=== PATIENT | male | born 1945 | race Caucasian/White ===

== ENCOUNTER → 2024-01-08 10:26 | Outpatient (REF) | payer OTHER, SELFPAY | LOC: RAD 10:26 | PROVIDERS: ATTENDING PHYSICIAN Physician Assistant | DX: M54.50 Low back pain, unspecified (principal) | CPT/HCPCS: 72110 ==

== ENCOUNTER 2024-04-30 05:58 | Day surgery (SDC) | payer OTHER, SELFPAY ==
[2024-04-30] VITALS (13 sets, daily range): BP systolic 106–130; BP diastolic 54–82; BMI 35.1
[2024-04-30 07:05] LABS: Glucose - Point of Care 197 mg/dl (70-99)
--- NOTE | 2024-04-30 07:10 | PTCARENOTE ---
Pt states he has full upper implants which are removable but are in very tight. Dr Alfredo made aware and assessed pt. Dr Alfredo states pt can keep implants in place.
[2024-04-30] MEDS: TYLENOL 1000 MG PO (07:29)
[2024-04-30 09:07] LABS: ACT-LR - POC 281 Seconds (116-155)
[2024-04-30 09:33] LABS: ACT-LR - POC 384 Seconds (116-155)
--- NOTE | 2024-04-30 10:46 | ITS.CL.ABL ---
Corporate Consultant - Ablation
Ablation
Procedure Report:
AFIB ablation:
Mr. Jarvis is a very pleasant 79 yr old gentleman with h/o PerAF s/p AF ablation in 11/04/2020 that included pulmonary veins isolation, Roof line flutter ablation and remained AF free for 4 years with no recurrent Atrial flutter and presented
today to the EP lab for atrial flutter ablation.
Date of Procedure:
04/30/2024
Indications:
Atrial flutter
Pre-Operative Diagnosis:
Atypical Atrial flutter / Atrial fibrillation
Post-Operative Diagnosis:
Atypical Atrial flutter / Atrial fibrillation
Procedure Performed:
Redo atrial fibrillation ablation with Pulmonary vein isolation
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
Posterior wall isolation ablation
Performing Physician:
Monty Loaiza MD
Assistants:
EP staff
Anesthesia:
See anesthesia records
Detailed Description of the Procedure:
Written informed consent was obtained from the patient after a full explanation of the risks and benefits of the procedure including the risks of sedation and anesthesia.
The patient was brought to the electrophysiology laboratory in stable condition in fasting state. Continuous electrocardiographic and hemodynamic monitoring was initiated.
The initial rhythm was atypical atrial flutter.
Time out:
The procedure site was meticulously prepared with surgical scrub and allowed to dry with no pooling. Sterile draping was applied to cover the procedure site. The image intensifier was draped with sterile bag and positioned over the patient.
Prior to the start of the procedure a surgical pause was performed with in agreement from anesthesia, EP staff with double identifier and explanation of the procedure, plan and site of the procedure stated with allergies and medications and
pertinent labs reviewed.
After infusion of local anesthetic, vascular access was obtained under ultrasound guidance and sheaths were placed over guide wire as detailed below.
Sheath and Catheter Placement:
Following sheaths were placed
Sheaths:
��������� Agilis sheath in right femoral vein upgraded from 8Fr in right femoral vein
��������� 9Fr in right femoral vein
��������� 7Fr in right femoral vein
Catheters:
��������� Biosense Alexis Thermocool STSF bidirectional - at locations of HRA, RV, LA, CS and LV.
��������� Pentaray catheter � at locations of RA, RV, LA and CS
��������� ICE catheter �AcuNav - at locations of RA, SVC, and RV.
��������� Decapolar catheter in RA and CS
A 7000 units of heparin was given.
Intracardiac ECHO:
An 8-Maltese AcuNav intracardiac ECHO (ICE) probe was advanced through the 9-Maltese sheath in the right femoral vein into the right atrium under fluoroscopic and ICE ultrasound image guidance and a baseline ECHO study was performed. The left atrial
size was dilated. There was trace tricuspid regurgitation. There was mild mitral regurgitation. The aortic valve was grossly normal. There was normal left ventricular size and function. There is trace pericardial effusion. All the four veins were
identified and has good flow identified.
During the procedure, ICE was used for monitoring of complications, guidance of trans-septal puncture, monitor the catheter position and tracking ablation lesions. No change in the pericardial space noted throughout the procedure.
The RA was identified and CTI was imaged.
Electroanatomic mapping of the right atrium:
Patient was in atrial flutter. The CS activation was eccentric in nature. The entrainement from the distal and proximal CS was done that showed that the proximal CS was closer to the circuit.
Using the Pentaray catheter advanced through Agilis sheath into the right atrium, an electroanatomic map (EAM) of the right atrium was created using [employer] Carto mapping system. Right atrial mapping was done that showed passive activation
of the RA with the earliest activation from the atrial septum.
Decision was made to proceed with trans septal puncture.
Trans-septal Puncture:
Heparin was initiated and infused to maintain appropriate ACT. A J-tipped guidewire was advanced through the 8-Maltese sheath in the right femoral vein into the superior vena cava under EAM and ICE guidance. The 8-Maltese sheath was exchanged for an
Agilis sheath which was advanced into the superior vena cava. A BRK transseptal needle was advanced until the tip was slightly behind the tip of the dilator inside the Agilis sheath. The apparatus was withdrawn until it was in contact with the fossa
ovalis. The position was adjusted based on ultrasound images from ICE. Under hemodynamic and ICE ultrasound guidance, left atrium was cannulated by advancing the needle. Once atrial septum was cannulated, the needle was pulled back and saline
injection was given into the left atrium. Both the sheath and the dilator was advanced into the left atrium. The dilator with the needle was withdrawn. Blood was aspirated from the Agilis sheath and arterial blood confirmed. The sheath was flushed.
Saline injection noted into the left atrium on ICE. The mapping catheter was advanced in the Agilis sheath into the left pulmonary vein.
3D Electroanatomic Mapping:
Using the Pentaray catheter advanced through Agilis sheath into the left atrium, an electroanatomic map (EAM) of the left atrium was created using [employer] Carto mapping system. The map was used for localization of catheter position and
tacking of ablation lesions.
The EAM of the left atrium showed 4 pulmonary veins with good antral scarring but there was signals noted inside the veins.
The flutter mapping using LAT map showed roof dependent atrial flutter.
Following the EAM, preparation were made for ablation.
Ablation:
Ablation # 1: Atypical atrial flutter / Roof line Formation:
Radiofrequency ablation was performed using an open irrigation, force-sensing 3.5mm, bidirectional radiofrequency ablation catheter (ThermocoSolar[employer]erve STSF).
A set of radiofrequency ablations were placed on the roof line connecting the left superior pulmonary vein ablation lesions to the right superior pulmonary vein lesions rings.
The tachycardia slowed and terminated to sinus rhythm with roof line formation.
All the ablation lesions were guided by the [facility] SURPOINT module with the posterior lesions were limited to 45 condon for SURPOINT lesion index goal of 400 and anterior wall lesions were limited to SURPOINT index goal of 450.
Additional ablation lesions were placed to complete the roof line and the RSPV and LSPV antral line were connected.
�
EAM and roof block:
The ablator was placed through the previously punctured atrial septum location to the LA. The penta ray was placed in the NATASHA and the differential pacing showed the block at the roof.
The LA was mapped with sinus rhythm that showed the line of block at the roof line.
Ablation # 2: Atrial fibrillation redo Ablation:
The right sided PVs had signals noted and a circumferential line of ablation lesions were placedaround the antra of the right sided veins.
All the ablation lesions were guided by the [facility] SURPOINT module with the posterior lesions were limited to 45 condon for SURPOINT lesion index goal of 400 and anterior wall lesions were limited to SURPOINT index goal of 450.
Ablation # 3: Carinal line formation: Epicardial connection:
The signals in the RSPV persisted despite the antral isolation. The epicardial connections around the hossein of the right sided PVs were identified by capturing LA from pacing from these locations. These locations were ablated and there was no
capture noted after that. There were also lesions in the deep RSPV as well and needed focal segmental ablation of these epicardial connections.
Furthermore, more epicardial connections were noted in the posterior wall and these areas were ablated. The esophageal temperature was monitored. The esophagus was noted to be on the right side of the LA based on the locations of the esophageal
temperature probe. Ablation was stopped for any temperature increase of 0.1 degree C. Max esophageal temperature was 36.1C.
Given the presence of epicardial connection in the carinal area, the decision was made to create a full line of block be placing ablation lesions connecting from the posterior antral ablation lesions to the anterior antral ablations on both right
sided veins.
Ablation # 4: Posterior wall isolation with the Box lesions set Formation:
There was a significant fractionation seen in the posterior wall and LA AF foci and atypical flutter from the posterior wall made it clear as the posterior wall is critical in maintaining the atrial fibrillation/flutter and the decision was made to
isolate the posterior wall by creating a �Box� lesions.
A set of radiofrequency ablations were placed on the floor line connecting the left inferior pulmonary vein ablation lesions to the right inferior pulmonary vein lesions rings.
The penta-ray in the posterior wall showed entrance block with dissociated potentials and the pacing from the posterior wall showed local capture with no exit from the box lesions confirming the exit block.
EP study and Confirmation of the PVI and bidirectional block:
Following achievement of entrance block at the pulmonary veins, pacing from the pentaray catheter in each of the four veins at 10 milliamps for 2 milliseconds showed entrance and exit block. All PVI were rechecked at the end of the case and remained
isolated with dissociated and local capture with pacing. Entrance and exit block were demonstrated in all veins.
The LA was mapped with Carto EAM in sinus rhythm confirming the line of block at the ablation lesions lines.
Posterior wall pacing with pentaray showed bidirectional block with no exit noted with local capture.
Sinus Node Function: The sinus node functions are within acceptable normal range.
The AV anish functions are deemed within normal range.
Arrhythmia Induction:
No sustained arrhythmia was induced at the end of the study.�
All PVI were rechecked at the end of the case and remained isolated with dissociated and local capture with pacing. Entrance and exit block were demonstrated.
Procedure End
ICE study was done again that showed no epicardial accumulation. No complications noted.
Following the completion of the EP study, catheters were removed. Protamine 30 mg was given at the end of the procedure and ACT was checked repeatedly. The sheaths were removed and hemostasis achieved with VASCADE and manual compression.
Left atrial Pressure:
Pre-ablation Mean LA pressure was 24mmHg (large V waves; indicative of mitral regurgitation in flutter)
Post-ablation Mean LA pressure was 25mmHg (large V waves; indicative of mitral regurgitation in sinus)
Post-ablation Mean RA pressure was 12mmHg
Estimated Blood loss:
<10 cc
Specimens Removed:
None.
Implants / Devices:
None
Urine output:
None
Packs / Drains/ Tubes:
None
Instrument / Sponge Count Correct:
Yes
Complications of the Procedure:
None
Condition of Patient at Time of Transfer:
Hemodynamically stable with no neurological or vascular compromise.
Summary:
Successful redo atrial fibrillation ablation with pulmonary vein re-isolation with epicardial connection ablation and carinal line formation, posterior wall isolation, atypical roof dependent atrial flutter ablation
Figures from the Procedure:
Figure 1: The electroanatomic mapping (EAM) of the left atrium with bipolar voltage (purple indicates normal electrical activity with red as no myocardial muscle electric activity indicating a line of block or scar.
--- NOTE | 2024-04-30 10:55 | PTCARENOTE ---
Pt turned for lung and skin assessment. Patches removed. No skin breakdown noted. Lungs with crackles all the way up. Pt denies SOB. No respiratory distress noted. Pulse ox 96% on 4L simple mask. Stir up regimine done. Will reassess and continue to
monitor.
[2024-04-30] MEDS: FLOMAX 0.4 MG PO (11:34)
[2024-04-30] MEDS: PROSCAR 5 MG PO (11:38)
[2024-04-30 11:40] LABS: Glucose - Point of Care 269 mg/dl (70-99)
--- NOTE | 2024-04-30 11:43 | PTCARENOTE ---
Pt's lung sounds reassessed. Lungs with crackles 1/3 up bilaterally. Pulse ox 92-94% on room air. Pt denies SOB. No respiratory distress noted. Marilyn Martinez NP made aware. No further treatment ordered at this time.
--- NOTE | 2024-04-30 11:51 | PTCARENOTE ---
Pt's accucheck is 269. Marilyn Martinez NP made aware. Awaiting orders. Will continue to monitor.
--- NOTE | 2024-04-30 11:58 | PTCARENOTE ---
Marilyn Martinez ASSISTANT LIBRARIAN ordered pt's morning dose of metformin 1000mg PO to be given. Will administer med and continue to monitor.
[2024-04-30] MEDS: GLUCOPHAGE 1000 MG PO (12:18)
[2024-04-30] MEDS: ANESTHETIC LOZENGE 1 LOZENGE PO (12:54)
--- NOTE | 2024-04-30 12:56 | W.PN.UPDATE ---
Update Note
Progress Note Update
79yo WM s/p redo PVI and flutter ablation (same day). He feels good, mild sore throat, no cp, sob, charles diet, voiding, R fem site c/d/i no HT, soft, EKG SR 1deg AVB. He will continue OAC Eliquis at home tonight. He will be on PPI for 2 weeks with RF
ablation. Activity restrictions reviewed. He will f/u BRAND STRATEGIST in 2 weeks. He is for d/c home after 130p if groins stable.
Mr. Jarvis is a very pleasant 79 yr old gentleman with h/o PerAF s/p AF ablation in 11/04/2020 that included pulmonary veins isolation, Roof line flutter ablation and remained AF free for 4 years with no recurrent Atrial flutter and presented
today to the EP lab for atrial flutter ablation.
Date of Procedure:
04/30/2024
Procedure Performed:
Redo atrial fibrillation ablation with Pulmonary vein isolation
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
Posterior wall isolation ablation
--- NOTE | 2024-04-30 13:06 | PTCARENOTE ---
Pt's lungs reassessed. Fine bibasilar rales noted. Pt denies SOB. No respiratory distress noted. Pt's at pt bedside. Will continue to monitor.
--- NOTE | 2024-04-30 13:20 | PTCARENOTE ---
Marilyn Martinez OPTICAL SALES ASSOCIATE made aware of pt's lung status- fine bibasilar rales, no respiratory distress noted and pt denies SOB. Pulse ox 92-95% on room air. Pt ok for discharge.
== END 2024-04-30 13:33 | disposition home or self-care (01) ==
LOC: CATH 05:58
PROVIDERS: ATTENDING PHYSICIAN Internal Medicine Cardiovascular Disease; FAMILY PHYSICIAN Family Medicine
DX: I48.91 Unspecified atrial fibrillation (principal); I48.4 Atypical atrial flutter; E11.9 Type 2 diabetes mellitus without complications
CPT/HCPCS: C1769; C1894; C1730; C1732; C1766; C1892; C1759; 82962; 85347; 86850; 86900; 86901; 93005; 93655; 93656; 93657; C1760

== ENCOUNTER 2025-06-18 06:21 | Day surgery (SDC) | payer OTHER, SELFPAY ==
[2025-06-18 07:38] LABS: Glucose - Point of Care 161 mg/dl (70-99)
== END 2025-06-18 09:02 | disposition home or self-care (01) ==
LOC: GI 06:21
PROVIDERS: ATTENDING PHYSICIAN Internal Medicine Gastroenterology
DX: Z12.11 Encounter for screening for malignant neoplasm of colon (principal); K64.8 Other hemorrhoids; K57.30 Diverticulosis of large intestine without perforation or abscess without bleeding; K62.1 Rectal polyp; Z98.0 Intestinal bypass and anastomosis status; Z86.0100 Personal history of colon polyps, unspecified; Z85.038 Personal history of other malignant neoplasm of large intestine
CPT/HCPCS: 45380; 82962; 88305